=== PATIENT | female | born 1990 | race Caucasian/White ===

== ENCOUNTER 2019-01-22 00:12 | Emergency (ER) | payer SELFPAY ==
[~2019-01-22] VITALS: Ht 170.2 cm; Wt 67.7 kg
[2019-01-22 00:19] VITALS: Ht 170.2 cm; Wt 67.7 kg
[2019-01-22] MEDS ORDERED: PHEN-537 PO (01:18)
[2019-01-22] MEDS ORDERED: NITR-58 PO (01:18)
--- NOTE | 2019-01-22 01:21 | ERD ---
ER Documentation Chief Complaint Chief Complaint dysuria an hr ago HPI Patient is a 28-year female presents the ER for concerns of dysuria and frequency which started prior to arrival. Patient reports burning pain with urination. Patient denies any fevers or chills. Patient denies any nausea or vomiting. Patient has had UTIs in the past and states her symptoms are similar. Patient states she did try to take amoxicillin which she had from her stepdad however did not help with her symptoms ROS All systems reviewed and are negative except as per history of present illness. Medications Home Meds Active Scripts Phenazopyridine Hcl* (Pyridium*) 100 Mg Tab, 100 MG PO TID PRN for URINARY PAIN, #7 TAB Prov:COLIN OLIVIER PA-C 01/22/19 Nitrofurantoin Monohyd Macrocr* (Macrobid*) 100 Mg Capsr, 100 MG PO BID for 5 Days, CAP Prov:COLIN OLIVIER PA-C 01/22/19 Allergies Allergies: Coded Allergies: No Known Allergy (Unverified , 01/22/19) PMhx/Soc Medical and Surgical Hx: pt denies Medical Hx, pt denies Surgical Hx Hx Alcohol Use: No Hx Substance Use: No Hx Tobacco Use: No Smoking Status: Never smoker FmHx Family History: No diabetes Physical Exam Vitals Vital Signs Date Temp Pulse Resp B/P (MAP) Pulse Ox O2 O2 Flow FiO2 Time Delivery Rate 01/22/19 97.4 97 18 118/56 99 00:19 (76) Physical Exam GENERAL: Well-developed, well-nourished female. Appears in no acute distress. HEAD: Normocephalic, atraumatic. EYES: Pupils are equally reactive bilaterally. EOMs grossly intact. No conjunctival erythema. ENT: Moist mucous membranes. No uvula deviation. No kissing tonsils. NECK: Supple. No meningismus. Normal range of motion of the neck. LUNG: Clear to auscultation bilaterally. No rhonchi, wheezing, rales or coarse breath sounds. HEART: Regular rate and rhythm. No murmurs, rubs or gallops. ABDOMEN: Soft and nondistended. Tender to palpation in the suprapubic region. Positive bowel sounds in all four quadrants. No rebound tenderness, no guarding. (-) McBurney's point tenderness. No CVA tenderness. BACK: No midline tenderness. EXTREMITIES: Equal pulses bilaterally. No peripheral clubbing, cyanosis or edema. No unilateral leg swelling. NEUROLOGIC: Alert and oriented. Moving all four extremities without any difficulty. Normal speech. Steady gait. SKIN: Normal color. Warm and dry. No rashes or lesions. Results 24 hrs Laboratory Tests Test 01/22/19 01:15 Bedside Urine pH (LAB) 6.0 Bedside Urine Protein (LAB) Negative Bedside Urine Glucose (UA) Negative Bedside Urine Ketones (LAB) Negative Bedside Urine Blood 2+ Bedside Urine Nitrite (LAB) Negative Bedside Urine Leukocyte Esterase (L 2+ Current Medications Medications Dose Sig/Gurvinder Start Time Status Last (Trade) Ordered Route PRN Stop Time Admin Dose Reason Admin 100 mg ONCE ONCE 01/22/19 Phenazopyridi PO 01:30 ne HCl 01/22/19 01:31 (Pyridium) 100 mg ONCE ONCE 01/22/19 Nitrofurantoi PO 01:30 n 01/22/19 01:31 Macrocrystals (Macrobid) Procedures/MDM MEDICAL DECISION MAKING: Patient is a 28-year-old female presents the ER for concerns of dysuria and frequency x1 hour. Vital signs were reviewed. Patient was afebrile. UA showed 2+ leukocyte esterase and 2+ blood.. Urine was negative. Given these findings, the patients presentation is most consistent with urinary tract infection. I have a much lower clinical concern for pyelonephritis, nephrolithiasis, appendicitis, diverticulitis, constipation, ectopic , PID, ovarian torsion, or tubo-ovarian abscess. PRESCRIPTIONS: Macrobid, Pyridium DISCHARGE: At this time, patient is stable for discharge and outpatient management. I have instructed the patient to follow-up with his/her primary care physician in 1-2 d ays. Patient should repeat UA in 2 weeks to check for resolution of urinary tract infection. If symptoms persist, patient may need to see a specialist for further examinations and testing. I have instructed the patient to promptly return to the ER at any time for any new or worsening symptoms including increased pain, fever, nausea, vomiting, urinary changes or weakness. The patien t and/or family expressed understanding of and agreement with this plan. All questions were answered. Home care instructions were provided. Disclaimer: Inadvertent spelling and grammatical errors are likely due to EHR/dictation software use and do not reflect on the overall quality of patient care. Also, please note that the electronic time recorded on this note does not necessarily reflect the actual time of the patient encounter. Departure Diagnosis: Primary Impression: UTI (urinary tract infection) Urinary tract infection type: site unspecified Hematuria presence: without hematuria Qualified Codes: N39.0 - Urinary tract infection, site not specified Condition: Fair Patient Instructions: Understanding Urinary Tract Infections (UTIs) Referrals: [facility] YOU HAVE RECEIVED A MEDICAL SCREENING EXAM AND THE RESULTS INDICATE THAT YOU DO NOT HAVE A CONDITION THAT REQUIRES URGENT TREATMENT IN THE EMERGENCY DEPARTMENT. FURTHER EVALUATION AND TREATMENT OF YOUR CONDITION CAN WAIT UNTIL YOU ARE SEEN IN YOUR DOCTORS OFFICE WITHIN THE NEXT 1-2 DAYS. IT IS YOUR RESPONSIBILITY TO MAKE AN APPOINTMENT FOR FOLOW-UP CARE. IF YOU HAVE A PRIMARY DOCTOR --you should call your primary doctor and schedule an appointment IF YOU DO NOT HAVE A PRIMARY DOCTOR YOU CAN CALL OUR PHYSICIAN REFERRAL HOTLINE AT IF YOU CAN NOT AFFORD TO SEE A PHYSICIAN YOU CAN CHOSE FROM THE FOLLOWING [facility] [address] [facility] [address] [facility] [facility] [address] [facility] [address] [facility] [address] [facility] [facility] [address] [facility]. [facility] YOU HAVE RECEIVED A MEDICAL SCREENING EXAM AND THE RESULTS INDICATE THAT YOU DO NOT HAVE A CONDITION THAT REQUIRES URGENT TREATMENT IN THE EMERGENCY DEPARTMENT. FURTHER EVALUATION AND TREATMENT OF YOUR CONDITION CAN WAIT UNTIL YOU ARE SEEN IN YOUR DOCTORS OFFICE WITHIN THE NEXT 1-2 DAYS. IT IS YOUR RESPONSIBILITY TO MAKE AN APPOINTMENT FOR FOLOW-UP CARE. IF YOU HAVE A PRIMARY DOCTOR --you should call your primary doctor and schedule and appointment IF YOU DO NOT HAVE A PRIMARY DOCTOR YOU CAN CALL OUR PHYSICIAN REFERRAL HOTLINE AT . IF YOU CAN NOT AFFORD TO SEE A PHYSICIAN YOU CAN CHOSE FROM THE FOLLOWING [facility] INSTIT[facility]IONS: [place] [id number] [place] [address] [facility] [address] [place] [address] [facility] [address] [place] [address] Additional Instructions: Call your primary care doctor TOMORROW for an appointment during the next 1-2 days.See the doctor sooner or return here if your condition worsens before your appointment time. COLIN OLIVIER PA-C Jan 22, 2019 01:21
[2019-01-22] MEDS ORDERED: PHENAZOPYRIDINE 100 MG TAB PO ONE (01:30)
[2019-01-22] MEDS ORDERED: NITROFURANTOIN (SR) 100 MG CAP PO ONE (01:30)
[2019-01-22 01:45] VITALS: BP 116/73; PULSE 89; RESP 20
== END 2019-01-22 01:44 | disposition home or self-care (01) ==
LOC: FTE 00:12
DX: N39.0 Urinary tract infection, site not specified (principal)
CPT/HCPCS: 81003; 81025; 99283